=== PATIENT | female | born 1940 | race African-American/Black ===

== ENCOUNTER 2017-09-21 21:16 | Inpatient (IN) | payer OTHER, MEDICAID ==
[~2017-09-21] VITALS: Ht 160 cm; Wt 65.3 kg
[2017-09-21] MEDS ORDERED: NITROGLYCERIN OINT 1GM/INCH UDPKT TD STA (21:20)
[2017-09-21] MEDS ORDERED: FUROSEMIDE 40MG/4ML VIAL IV STA (21:20)
[2017-09-21] MEDS ORDERED: NITROGLYCERIN 50MG PREMIX 250 ML IV ONE (21:30)
[2017-09-21 23:22] LABS: CHLORIDE 112 mEq/L (98-107)
[2017-09-21 23:23] LABS: BASOPHILS % 0.5 % (0.0-2.0); EOSINOPHILS % 0.6 % (0.0-5.0); HEMATOCRIT. 22.7 % (36.0-48.0); HEMOGLOBIN. 7.3 g/dL (12.0-16.0); INR 1.1; MEAN CORPUSCULAR HEMOGLOBIN 30.3 pg (28.0-32.0); MEAN CORPUSCULAR VOLUME 94.4 fL (81.0-99.0); MEAN PLATELET VOLUME 6.6 fl (7.4-10.4); MONOCYTES % 4.4 % (2.0-8.0); NEUTROPHILS % 81.5 % (40.0-76.0); PLATELET 215 x1000/uL (130-400)
[2017-09-22] VITALS (67 sets, daily range): BP systolic 110–217; BP diastolic 54–113
[2017-09-22] MEDS ORDERED: ONDANSETRON HCL 4MG TABLET PO PRN (06:30)
[2017-09-22] MEDS ORDERED: CLONIDINE 0.1MG TABLET PO PRN ×2 (06:30→10:00)
[2017-09-22] MEDS ORDERED: MORPHINE SULFATE 4 MG/ML CPJ (NOT FOR IM USE) IV PRN (07:00)
[2017-09-22] MEDS ORDERED: NITROGLYCERIN 50MG PREMIX 250 ML IV ONE ×2 (07:30→07:36)
[2017-09-22 08:20] LABS: BG BASE EXCESS -8.5 mmol/L (-2.0-2.0); BG BILEVEL POS AIRWAY PRESSURE 15/5; BG DEOXYHEMOGLOBIN 0.8 % (0.0-5.0); BG FRACTION INSPIRED OXYGEN 40; BG HCO3 ACT 16.2 mmol/L (22.0-26.0); BG METHEMOGLOBIN 0.5 % (0.0-1.5); BG OXYGEN SATURATION 99.2 % (92.0-98.5); BG OXYHEMOGLOBIN 97.7 % (94.0-97.0); BG PH 7.351 (7.350-7.450); BG PO2 179.7 mmHg (75.0-100.0); BG SAMPLE SITE RIGHT BRACHIAL; BG TOTAL HEMOGLOBIN 6.8 g/dL (12.0-18.0); BG VENT MODE MASK - BIPAP; BG VENT RATE 16 set
[2017-09-22] MEDS ORDERED: HYDRALAZINE HCL 25MG TABLET PO SCH (09:00)
[2017-09-22] MEDS ORDERED: ENOXAPARIN 40MG/0.4ML SYR SUBCUT SCH (09:00)
[2017-09-22] MEDS: ENOXAPARIN 30MG/0.3ML SYR SUBCUT SCH (09:05)
[2017-09-22] MEDS: AMLODIPINE 10MG TABLET PO SCH (09:05)
[2017-09-22] MEDS ORDERED: CLONIDINE 0.2MG TABLET PO PRN (09:45)
[2017-09-22] MEDS ORDERED: CLONIDINE 0.2MG TABLET PO SCH (10:15)
[2017-09-22] MEDS: NITROGLYCERIN OINT 1GM/INCH UDPKT TD SCH ×3 (11:04→23:50)
[2017-09-22] MEDS: FUROSEMIDE 40MG/4ML VIAL IVP SCH (11:04)
[2017-09-22] MEDS: HYDRALAZINE HCL 100MG TABLET PO SCH ×2 (13:09→21:02)
[2017-09-22] MEDS: CITRIC ACID/SODIUM CITRATE SOLN 15ML UDC PO SCH ×2 (13:39→17:48)
[2017-09-22 16:25] LABS: BASOPHILS % 0.6 % (0.0-2.0); EOSINOPHILS % 0.8 % (0.0-5.0); LYMPHOCYTES % 37.2 % (20.0-50.0); MEAN CORPUSCULAR HEMOGLOBIN 30.7 pg (28.0-32.0); MEAN CORPUSCULAR VOLUME 92.5 fL (81.0-99.0); MEAN PLATELET VOLUME 7.1 fl (7.4-10.4); MONOCYTES % 8.8 % (2.0-8.0); NEUTROPHILS % 52.6 % (40.0-76.0); PLATELET 194 x1000/uL (130-400); RED CELL DISTRIBUTION WIDTH 16.7 % (11.6-14.6)
[2017-09-22 16:38] LABS: HEMOGLOBIN. 6.7 g/dL (12.0-16.0)
[2017-09-22 16:39] LABS: HEMATOCRIT. 20.3 % (36.0-48.0)
[2017-09-22] MEDS: CLONIDINE 0.1MG TABLET PO SCH (20:40)
[2017-09-22] MEDS ORDERED: EPOETIN ALFA 10000UNITS/ML VIAL SUBCUT SCH (21:00)
[2017-09-22] MEDS: IPRATROPIUM/ALBUTEROL 0.5-3(2.5)MG/3ML NEB HHN PRN (21:47)
[2017-09-23] VITALS (52 sets, daily range): BP systolic 93–137; BP diastolic 46–86
[2017-09-23] MEDS: IPRATROPIUM/ALBUTEROL 0.5-3(2.5)MG/3ML NEB HHN PRN ×3 (04:21→07:55)
[2017-09-23] MEDS: NITROGLYCERIN OINT 1GM/INCH UDPKT TD SCH ×3 (05:18→17:25)
[2017-09-23] MEDS: HYDRALAZINE HCL 100MG TABLET PO SCH ×2 (05:34→13:36)
[2017-09-23 07:08] LABS: CHLORIDE 113 mEq/L (98-107)
[2017-09-23 07:11] LABS: BASOPHILS % 0.6 % (0.0-2.0); EOSINOPHILS % 0.5 % (0.0-5.0); HEMATOCRIT. 21.2 % (36.0-48.0); HEMOGLOBIN. 7.2 g/dL (12.0-16.0); LYMPHOCYTES % 37.4 % (20.0-50.0); MEAN CORPUSCULAR HEMOGLOBIN 30.8 pg (28.0-32.0); MEAN CORPUSCULAR VOLUME 90.6 fL (81.0-99.0); MONOCYTES % 7.7 % (2.0-8.0); NEUTROPHILS % 53.8 % (40.0-76.0); PLATELET 178 x1000/uL (130-400); RED BLOOD CELL COUNT 2.34 mill/uL (4.2-5.4); RED CELL DISTRIBUTION WIDTH 17.7 % (11.6-14.6)
[2017-09-23 07:19] LABS: LDL CHOLESTEROL 62 mg/dL (5-100)
[2017-09-23 07:20] LABS: CREATINE KINASE 70 IU/L (26-192); CREATINE KINASE MB FRACTION 0.7 ng/mL (0.5-3.6); HDL CHOLESTEROL 47 mg/dL (40-59)
[2017-09-23] MEDS: ENOXAPARIN 30MG/0.3ML SYR SUBCUT SCH (09:00)
[2017-09-23] MEDS: AMLODIPINE 10MG TABLET PO SCH (09:03)
[2017-09-23] MEDS: CITRIC ACID/SODIUM CITRATE SOLN 15ML UDC PO SCH ×3 (09:03→17:26)
[2017-09-23] MEDS: CLONIDINE 0.1MG TABLET PO SCH (09:03)
[2017-09-23] MEDS: FUROSEMIDE 40MG/4ML VIAL IVP SCH (09:03)
== END 2017-09-23 18:42 | disposition short-term general hospital (02) | DRG 189 ==
LOC: ER 21:16 → CVICU 22:44 → EDBEDREQ 23:47 → EDBEDREQSVC 23:47 → EDBEDREQTM 23:47 → ENRESERV 09-22 02:28
PROVIDERS: ADMIT Hospitalist; ATTEND Hospitalist
PROC: 5A09457 Assistance with Respiratory Ventilation, 24-96 Consecutive Hours, Continuous Positive Airway Pressure (ICD-10-PCS; 2017-09-21)
PROC: 30233N1 Transfusion of Nonautologous Red Blood Cells into Peripheral Vein, Percutaneous Approach (ICD-10-PCS; principal; 2017-09-22)
DX: J96.00 Acute respiratory failure, unspecified whether with hypoxia or hypercapnia (principal); N18.6 End stage renal disease; I50.23 Acute on chronic systolic (congestive) heart failure; E44.1 Mild protein-calorie malnutrition; N17.9 Acute kidney failure, unspecified; I13.2 Hypertensive heart and chronic kidney disease with heart failure and with stage 5 chronic kidney disease, or end stage renal disease; C64.9 Malignant neoplasm of unspecified kidney, except renal pelvis; E87.2 Acidosis; Z94.0 Kidney transplant status; D72.829 Elevated white blood cell count, unspecified; D63.1 Anemia in chronic kidney disease; R74.0 Nonspecific elevation of levels of transaminase and lactic acid dehydrogenase [LDH]; E83.51 Hypocalcemia; I25.10 Atherosclerotic heart disease of native coronary artery without angina pectoris; I25.2 Old myocardial infarction; Z99.2 Dependence on renal dialysis; Z88.0 Allergy status to penicillin; Z91.013 Allergy to seafood; Z92.3 Personal history of irradiation; Z68.25 Body mass index [BMI] 25.0-25.9, adult
CPT/HCPCS: 36415; 36600; 71045; 80053; 80061; 82375; 82550; 82553; 82805; 83540; 83550; 83605; 83690; 83735; 83880; 84443; 84484; 85025; 85044; 85379; 85610; 86850; 86900; 86920; 87040; 93005; 93306; 93970; 94640; 94660; J0885; J1650; J1940; J3490; J7040; J7620; P9016; A4315